=== PATIENT | male | born 1990 | race African-American/Black ===

== ENCOUNTER → 2017-07-23 | Outpatient (CLI) | payer SELFPAY ==
[2017-07-23 10:27] LABS: ANION GAP 6 (6-14); BLOOD UREA NITROGEN 16 mg/dL (8-26); CALCIUM 9.5 mg/dL (8.5-10.1); CARBON DIOXIDE 31 mmol/L (21-32); CHLORIDE 105 mmol/L (98-107); CREATINE KINASE 743 U/L (39-308); CREATININE 0.9 mg/dL (0.7-1.3); GFR 125.4; GLUCOSE 76 mg/dL (70-99); POTASSIUM 3.8 mmol/L (3.5-5.1); SODIUM 142 mmol/L (136-145)
== END | disposition home or self-care (01) ==
LOC: LAB 09:54
DX: M62.82 Rhabdomyolysis (principal)
CPT/HCPCS: 36415; 80048; 82550